=== PATIENT | female | born 2000 | race Caucasian/White ===

== ENCOUNTER → 2024-01-24 | Outpatient (CLI) | payer BC | LOC: M LAB 15:58 | PROVIDERS: ATTEND Physician Assistant | DX: M54.50 Low back pain, unspecified (principal); R07.2 Precordial pain ==

== ENCOUNTER → 2024-02-24 | Outpatient (REF) | payer BC ==
[2024-02-24 21:10] LABS: CREATININE, URINE 186.4 MG/DL
[2024-02-24 21:33] LABS: CREATININE 24 HOUR, URINE 1025.2 MG/24HR (600-1800); TOTAL PROTEIN 24 HOUR URINE 1081.3 MG/24HR (50-80); URINE TOTAL PROTEIN 196.6 MG/DL (0-14)
== END ==
LOC: M LAB REF 02-23 14:58
PROVIDERS: ATTEND Internal Medicine Nephrology
DX: R80.9 Proteinuria, unspecified (principal)

== ENCOUNTER → 2024-04-27 | Outpatient (CLI) | payer BC ==
[2024-04-28 06:49] LABS: FOLLICLE STIMULATING HORMONE 4.8 mIU/ML
== END ==
LOC: M LAB 16:17
PROVIDERS: ATTEND Obstetrics & Gynecology
DX: N92.0 Excessive and frequent menstruation with regular cycle (principal); N97.0 Female infertility associated with anovulation